=== PATIENT | male | born 1950 | race Caucasian/White ===

== ENCOUNTER 2018-12-10 06:47 | Emergency (ER) | payer SELFPAY ==
[2018-12-10 06:48] VITALS: BP 137/71; PULSE 62; RESP 14; TEMP 36.3; O2SAT 99
[2018-12-10 06:49] VITALS: BP 137/71; PULSE 65; RESP 14; TEMP 36.3; O2SAT 99; BMI 21.9
--- NOTE | 2018-12-10 07:06 | CT_ITS ---
STUDY: CT ABDOMEN AND PELVIS WITHOUT CONTRAST REASON FOR EXAM: Male, 68 years old. Nausea and vomiting. Abdominal pain. RADIATION DOSAGE (If Supplied By Facility): CTDIvol = ( 6.26 ) mGy, DLP = ( 286.28 ) mGycm TECHNIQUE: Transaxial images were obtained from the dome of the diaphragm to the symphysis pubis without oral contrast, and without intravenous contrast. Sagittal and coronal images were reconstructed. Individualized dose optimization techniques were used for this CT. COMPARISON: None. FINDINGS: Minimal degree of left basilar atelectasis. The visualized portions of the heart are within normal limits. Normal liver. Normal gallbladder and extrahepatic biliary system. Normal spleen. Normal pancreas. Normal bilateral adrenal glands. Normal right kidney. Normal left kidney. Normal visualized stomach. Normal small intestine. There are multiple colonic diverticula consistent with diverticulosis. The appendix is visualized and appears normal. There is diffuse atherosclerotic calcification of the abdominal aorta, without a demonstrated aneurysm. Normal inferior vena cava. Normal retroperitoneum. Normal urinary bladder. Normal abdominal wall. There are degenerative changes of the visualized lumbar spine. CT/Abdomen/Pelvis without Cont IMPRESSION: Sigmoid diverticulosis. Electronically Signed: Jace Hirsch, at 8:35 EDT , Service support ,
--- NOTE | 2018-12-10 07:06 | EKG12_ITS ---
Test Reason : ABD PAIN Blood Pressure : / mmHG Vent. Rate : 061 BPM Atrial Rate : 061 BPM P-R Int : 162 ms QRS Dur : 098 ms QT Int : 406 ms P-R-T Axes : 081 067 069 degrees QTc Int : 408 ms Normal sinus rhythm Normal ECG Confirmed by SYLWIA SOTO, RALEIGH ([id number]), avid editor NICHOLAS MONAE ([id number] on 12/11/2018 9:01:53 AM Referred By: LEISA Confirmed By:RALEIGH DAO MD
--- NOTE | 2018-12-10 07:08 | ED.VISSUMM ---
- ER Visit Summary Date of Service: 12/10/18 Chief Complaint: [Abdominal pain] History of Present Illness: The patient is a 68 M [the emergency department with complaint of abdominal pain. Patient states that he ate an omelette this morning and thinks that it may have been bad. Patient started vomiting x1. Patient states that he has had off-and-on diarrhea for some time. He denies any fevers. Initially his pain was a 7 out of 10 and currently is just more nausea. Patient is visiting his brother from out of town and is originally from the [facility]. Patient says he has no medical history. He has no prior surgical history. Patient denies any alcohol use. Denies chest pain or shortness of breath.] Physical Examination: HEENT-PERRLA, EOMI. Cranial nerves II through XII grossly intact. TMs clear. Mucous membranes moist. No adenopathy. Cardiovascular-regular rate and rhythm without murmur or ectopy Lungs-clear to auscultation, chest wall stable without crepitus or subcu emphysema Abdomen-normoactive bowel sounds, soft. Patient has tenderness over left lower quadrant with some guarding. There is no rebound, rigidity, or perineal signs. Extremities-intact ?4, normal range of motion, normal pulses, atraumatic [] Test Results: [CBC with differential obtained was normal. Chemistries normal. LFTs normal. Lipase was 156. EKG obtained shows sinus rhythm with a ventricular rate of 61 bpm with no acute segment changes. Troponin is less than 0.15. CT scan of the abdomen pelvis without contrast showed some diverticulosis otherwise nothing acute.] Emergency Department Course and Treatment: [She was ordered Zofran and normal saline. Patient had no further vomiting. Patient feels well and improved.] Treatment Plan: [Patient will be discharged home with prescription for Zofran. Patient given referral to primary care physician for follow-up in 3 to 5 days. Patient advised to return if worsening pain, fever, persistent vomiting, dehydration, or condition should worsen anyway.] Disposition: [Discharged home in stable condition] Impression: [Abdominal pain-etiology uncertain] This note was generated with [employer] software. It may contain incorrect words, spelling, and punctuation that were not noted in review of the chart prior to signing ED Disposition - Plan for ED Patient: Referrals: NOT,DEFINED [NON-STAFF] -
--- NOTE | 2018-12-10 07:13 | NURSING ---
NO OLD EKGS
[2018-12-10 07:26] LABS: Basophil# 0.05 X10^3/uL; Eosinophil# 0.09 X10^3/uL; Eosinophils% 1.7 % (0-5); Hemoglobin 13.2 g/dL (13.0-16.5); Lymphocyte % 31.1 % (19-41); Mean Corpuscular Hgb 29.1 pg (27.0-32.0); Mean Corpuscular Volume 88.1 fL (80-94); Mean Platelet Vol. 8.8 fl (6.2-12.0); Monocyte# 0.39 X10^3/uL; Monocyte% 7.6 % (0-10); NRBC Flagged by Analyzer 0 % (0-5); Neutrophil # 3.01 X10^3/uL (2.7-7.7); Neutrophil % 58.4 % (47-70); Platelet Count 186 K/mm3 (150-450); RBC Distribution Width CV 12.6 % (11.6-14.6); RBC Distribution Width SD 41.1 fl (35.1-43.9); Red Blood Count 4.54 M/mm3 (4.6-6.2); White Blood Count 5.2 K/mm3 (4.4-11.0)
[2018-12-10] MEDS: 0.9% Normal Saline 1,000 ML 125 ML IV (07:28)
[2018-12-10] MEDS: Ondansetron 4 MG/2 ML Vial IV (07:28)
[2018-12-10 07:44] LABS: AST(SGOT) 19 U/L (15-37); Alanine Aminotransfer ALT/SGPT 23 U/L (16-61); Albumin, Serum 3.7 g/dL (3.2-5.0); Alkaline Phosphatase 60 U/L (45-117); Anion Gap 5 (5-15); BUN 22 mg/dL (7-18); BUN/Creat Ratio 29.5 RATIO (10-20); Calcium,Total 8.9 mg/dL (8.5-10.1); Chloride 106 mmol/L (98-107); Creatinine, Serum 0.74 mg/dL (0.70-1.30); EST Glomerular Filtration Rate 111 mL/min (>60); Est Glom Filt Rate - Afr Amer 135 mL/min (>60); Estimated Creatinine Clearance 69.07 ml/min; Globulin 3.6 g/dL (2.2-4.2); Glucose 77 mg/dL (74-106); Lipase 156 U/L (73-393); Potassium 4.4 mmol/L (3.5-5.1); Protein, Total 7.3 g/dL (6.4-8.2); Sodium Level 141 mmol/L (136-145)
[2018-12-10 08:01] LABS: Lactic Acid 0.9 mmol/L (0.4-2.0)
--- NOTE | 2018-12-10 08:46 | ED.DEP ---
ED Disposition - Plan for ED Patient: Instructions: ABDOMINAL PAIN, Unkown Cause, (Male) Prescriptions: Ondansetron [Zofran Odt] 4 mg PO Q8H PRN PRN #10 tab PRN Reason: Nausea Prescription Printed Referrals: NOT,DEFINED [NON-STAFF] - Dony Hawthorne MD [STAFF PHYSICIAN] - 3-5 Days
[2018-12-10 09:01] VITALS: RESP 18
== END 2018-12-10 09:05 | disposition home or self-care (01) ==
PROVIDERS: Emergency Provider Emergency Medicine
DX: R10.32 Left lower quadrant pain (principal); R11.2 Nausea with vomiting, unspecified
CPT/HCPCS: 74176; 80053; 83605; 83690; 84484; 85025; 93005; 96361; 96374; 99283; J7030; A4216; J2405